=== PATIENT | female | born 1955 | race Caucasian/White ===

== ENCOUNTER → 2017-12-12 | Outpatient (CLI) | payer OTHER ==
[~2017-12-12] MED LIST: BUPR150T15 PO; LEVO125T5 PO; OMEP20CA9 PO
--- NOTE | 2017-12-12 16:33 | KCIC ---
EXAM: Cervical spine MRI without contrast. HISTORY: Gait abnormality. TECHNIQUE: Multiplanar, multisequence magnetic resonance imaging of the cervical spine was performed without contrast. COMPARISON: None. FINDINGS: There is minimal retrolisthesis of C3 on C4. There is degenerative endplate remodeling and spurring at multiple levels. There is chronic mild anterior wedging of T1, possibly developmental. No suspicious osseous lesion is seen. No spinal cord lesion is seen. The posterior fossa and skull base are unremarkable. At C2-C3, there is no stenosis. At C3-C4, there is a right paracentral to foraminal disc protrusion and osteophyte complex. There is moderate right foraminal stenosis. There is slight deformation of the right ventral aspect of the spinal cord and deviation of the right ventral nerve ramus. At C4-C5, mild left facet arthropathy. There is no stenosis. At C5-C6, there is a diffuse disc bulge and endplate osteophytosis. There is mild bilateral facet arthropathy. There is uncovertebral arthropathy. There is mild to moderate bilateral foraminal stenosis. At C6-C7, there is a left foraminal disc protrusion and endplate remodeling. There is minimal left foraminal stenosis. IMPRESSION: 1. Multilevel degenerative change within the cervical spine, described in detail above. This results in moderate right foraminal stenosis, deformation of the right ventral aspect of the spinal cord and deviation of the right ventral nerve ramus at C3-C4, mild to moderate bilateral foraminal stenosis at C5-C6 and minimal left foraminal stenosis at C6-C7. 2. No evidence of significant central canal stenosis or a spinal cord lesion. Electronically signed by: Jillian Balderrama MD (12/12/2017 4:30 PM) [place] [id number]
[2017-12-12] MEDS: GADOBUTROL 7.5 MMOL/7.5 ML VIAL IV ONE (16:44)
--- NOTE | 2017-12-12 16:58 | KCIC ---
MRI Brain with and without contrast History: Gait abnormality, previous neck trauma, dizziness at times, unsteady gait Technique: Multiplanar, multi sequential pre and postcontrast MR imaging was performed of the brain. Contrast: 7.5 cc Gadavist Comparison: None Findings: There is mild motion. There is no evidence of recent infarct or cytotoxic edema. Ventricular size is within normal limits, proportionate to the sulcal spaces. There is mild prominence of bifrontal subarachnoid spaces.There is no significant midline shift, intraaxial mass effect, or focal abnormal extra-axial fluid collection. There is very minimal T2 and FLAIR hyperintense signal of the supratentorial periventricular white matter, tiny focus of the right parietal deep white matter. There is no nodular parenchymal or leptomeningeal enhancement. There is preservation of the major intracranial flow-voids at the skull base. The cerebellar tonsils are normal in location. There is no significant abnormality of the pituitary gland. There is 0.8 cm probable cyst of the pineal gland. There is patchy mild bilateral ethmoid air cell mucosal thickening. There is right maxillary sinus mucosal retention cyst about 0.8 cm. The mastoid air cells are aerated. There is preserved marrow signal of the clivus. Impression: 1. There is no abnormal intracranial enhancement or evidence of recent infarct. Very mild T2 and FLAIR hyperintense signal of the supratentorial parenchyma is nonspecific, could be due to chronic microvascular ischemic disease. There is probable small cyst of the pineal gland. Electronically signed by: Anthony Mccormick MD (12/12/2017 4:56 PM) [id number]
== END | disposition home or self-care (01) ==
LOC: KCIC MRI 15:01
PROVIDERS: ATTEND Internal Medicine
DX: M48.02 Spinal stenosis, cervical region (principal); M50.223 Other cervical disc displacement at C6-C7 level; M12.88 Other specific arthropathies, not elsewhere classified, other specified site; J34.1 Cyst and mucocele of nose and nasal sinus
CPT/HCPCS: 70553; 72141; A9585

== ENCOUNTER → 2019-02-03 | Outpatient (CLI) | payer OTHER ==
[~2019-02-03] MED LIST changes: +OMEP20CA10 PO; -OMEP20CA9 PO
--- NOTE | 2019-02-03 12:47 | KCIC ---
EXAM: RENAL/RETROPERITONAL ULTRASOUND. HISTORY: Right flank pain. COMPARISON: 01/29/2017. FINDINGS: Ultrasound of the kidneys, bladder and retroperitoneum was performed. The right kidney measures 12.4 cm. Cortical thickness and echogenicity are preserved. There is no hydronephrosis. A benign cyst at the right lower pole measures 2.9 x 2.8 cm. The left kidney measures 12.1 cm. Cortical thickness and echogenicity are preserved. There is no hydronephrosis. Images of the bladder reveal no gross abnormality. The abdominal aorta and inferior vena cava are grossly patent and normal in caliber. IMPRESSION: 1. Benign 2.9 cm right renal cyst. No cause for pain is identified. Electronically signed by: Mallika Huffman MD (02/03/2019 12:44 PM) [facility]
== END | disposition home or self-care (01) ==
LOC: KCIC US 11:02
PROVIDERS: ATTEND Family Medicine
DX: N28.1 Cyst of kidney, acquired (principal)
CPT/HCPCS: 76770